=== PATIENT | female | born 1990 | race Caucasian/White ===

== ENCOUNTER 2016-10-18 18:31 | Emergency (ER) | payer MEDICAID ==
[2016-10-18 18:55] VITALS: BP 141/75
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
== END 2016-10-18 21:03 | disposition home or self-care (01) ==
LOC: JP.ED 18:31
DX: O9A.212 Injury, poisoning and certain other consequences of external causes complicating pregnancy, second trimester (principal); S30.1XXA Contusion of abdominal wall, initial encounter; Z3A.18 18 weeks gestation of pregnancy; Y93.55 Activity, bike riding; Z98.890 Other specified postprocedural states
CPT/HCPCS: 36415; 76815; 80053; 81001; 85025; 99284-25

== ENCOUNTER 2017-02-09 22:09 | Emergency (ER) | payer MEDICAID ==
[2017-02-09 22:32] VITALS: BP 127/73
--- NOTE | 2017-02-09 23:03 | EDM.PDOC ---
ED HPI GENERAL MEDICAL PROBLEM - General Chief Complaint: Genitourinary Problem Stated Complaint: HEMORHOID PAINFUL Time Seen by Provider: 02/09/17 22:50 Source of Information: Reports: Patient, Family, RN Notes Reviewed History Limitations: Reports: No Limitations - History of Present Illness INITIAL COMMENTS - FREE TEXT/NARRATIVE: 26-year-old female presents emergency department day complaint of rectal pain she is currently 36 weeks intrauterine admits to hard stool earlier today and she is now developed hemorrhoid that is not bleeding she is a 3 para 2 she did have hemorrhoids with prior pregnancies however small and did not cause any difficulties hemrroids Pain Score (Numeric/FACES): 10 - Related Data Allergies Allergy/AdvReac Type Severity Reaction Status Date / Time No Known Allergies Allergy Verified 01/05/17 21:06 Home Meds: Home Meds Ferrous Sulfate [Ferrous Sulfate] 325 mg PO BID 01/05/17 [History] Vits #93/Iron Fum/FA [ Formula Tablet] 1 each PO DAILY [History] Past Medical History HEENT History: Reports: Impaired Vision Gastrointestinal History: Reports: Hemorrhoids 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 Denies: Bloody Stool ED EXAM, GI/ABD - Physical Exam Exam: See Below Text/Narrative:: Examination of the rectum and presence of nursing staff there is a fairly large hemorrhoid proximally 1 cm x 2 cm superior aspect of the rectum it is exquisitely tender to the touch, no bleeding is appreciated Course - Vital Signs Last Recorded V/S: Last Vital Signs Temp 98.6 F 02/09/17 22:31 Pulse 88 02/09/17 22:31 Resp 20 02/09/17 22:31 BP 127/73 02/09/17 22:31 Pulse Ox 98 02/09/17 22:31 Departure - Departure Time of Disposition: 23:02 Disposition: Home, Self-Care 01 Condition: Good Clinical Impression: Hemorrhoids during Qualifiers: Trimester: third trimester Qualified Code(s): O22.43 - Hemorrhoids in , third trimester - Discharge Information Referrals: Jelly Iqbal CNM [Primary Care Provider] - Additional Instructions: Recommend symptomatic care, recommend soft stool, recommend sitz baths for comfort please keep your regular appointments with your OB provider - Assessment/Plan Plan: Assessment Acuity = acute Site and laterality = hemorrhoid in the third trimester Etiology = secondary to straining during stool Manifestations = pain Location of injury = Home Lab values = none Plan Symptomatic care [id number] products and recommend soft stools to avoid straining keep regular appointments with OB provider, sitz baths for comfort Patient was in agreement with the plan all questions were answered, they were instructed to return to the emergency department or call for worsening symptoms. This note was dictated using [employer] voice recognition software please call with any questions.
== END 2017-02-09 23:17 | disposition home or self-care (01) ==
LOC: JP.ED 22:09
DX: O22.43 Hemorrhoids in pregnancy, third trimester (principal); Z3A.36 36 weeks gestation of pregnancy
CPT/HCPCS: 99283

== ENCOUNTER 2017-03-13 05:45 | Inpatient (IN) | payer MEDICAID ==
[2017-03-13] MEDS ORDERED: Lactated Ringers 1,000 ML IV SCH (06:30)
[2017-03-13] MEDS ORDERED: Oxytocin 10 Units/1 ML SDV ONE (06:53)
[2017-03-13] MEDS ORDERED: cefOXitin 1 GM Vial ONE (06:54)
[2017-03-13] MEDS ORDERED: Sodium Chloride 0.9% 0 ML ONE (06:55)
[2017-03-13] MEDS ORDERED: cefOXitin 2 GM Vial ONE (07:33)
[2017-03-13] MEDS ORDERED: Naloxone 0.4 MG/ML SDV IVPUSH PRN (07:46)
[2017-03-13] MEDS ORDERED: Lactated Ringers 1,000 ML ONE (07:48)
[2017-03-13] MEDS ORDERED: Naloxone 0.4 MG/ML SDV IV PRN (07:55)
[2017-03-13] MEDS: HYDROmorphone/Normal Saline 15 MG/30 ML PCA IV PRN (07:56)
[2017-03-13] MEDS ORDERED: Midazolam 1 MG/ML 2 ML SDV ONE (07:58)
[2017-03-13] MEDS ORDERED: fentaNYL 100 MCG/2 ML SDV ONE (07:58)
[2017-03-13] MEDS ORDERED: Ondansetron 4 MG/2 ML SDV ONE (08:12)
[2017-03-13] MEDS ORDERED: Ondansetron 4 MG/2 ML SDV IVPUSH PRN (09:57)
[2017-03-13] MEDS: Dextrose 5%-Lactated Ringers 1,000 ML IV SCH ×2 (10:02→21:54)
[2017-03-13] MEDS ORDERED: Misoprostol 200 MCG Tab ONE (11:42)
[2017-03-13] MEDS ORDERED: Methylergonovine 0.2 MG/1 ML Amp ONE (11:43)
[2017-03-13] MEDS ORDERED: Carboprost Tromethamine 250 MCG/1 ML Amp ONE (11:43)
[2017-03-13] MEDS ORDERED: Methylergonovine 0.2 MG/1 ML Amp STA (11:45)
[2017-03-13] MEDS ORDERED: Coagulation Factor VIIa Recombinant (per MCG) 2 MG Vial IVPUSH STA (11:55)
[2017-03-13] MEDS: cefOXitin 2 GM in Sodium Chloride 0.9% 50 ML IV SCH ×2 (13:11→18:10)
[2017-03-14] MEDS: cefOXitin 2 GM in Sodium Chloride 0.9% 50 ML IV SCH ×2 (02:32→05:34)
[2017-03-14] MEDS: Dextrose 5%-Lactated Ringers 1,000 ML IV SCH (03:46)
[2017-03-14] MEDS ORDERED: Dextrose 5%-Lactated Ringers 1,000 ML IV SCH ×2 (08:00→17:46)
[2017-03-14] MEDS: HYDROmorphone/Normal Saline 15 MG/30 ML PCA IV PRN (20:10)
[2017-03-15] MEDS ORDERED: Sodium Chloride 0.9% 10 ML Syringe IV PRN (08:18)
[2017-03-15] MEDS ORDERED: Magnesium Hydroxide 400 MG/5 ML Susp 30 ML Cup PO ONE (09:00)
[2017-03-15] MEDS: Acetaminophen/HYDROcodone 325-5 MG Tab PO PRN ×4 (09:27→23:11)
--- NOTE | 2017-03-15 14:05 | PN ---
DATE OF SERVICE: 03/14/2017 The patient had a quite a bit of bleeding following yesterday, then received 2 units of packed RBCs. Hemoglobin at this point is 8.5 and appears clinically the bleeding has slowed down and urine output has picked up fairly well. Plan would be to continue the ADDICTION PSYCHIATRIST today. We will recheck the hemoglobin at 5:00 p.m. and 5:00 a.m. and go up to a regular diet. Naldo Ann MD /[id number]
[2017-03-15] MEDS: Docusate Sodium 100 MG Cap PO PRN (19:26)
[2017-03-16] MEDS: Acetaminophen/HYDROcodone 325-5 MG Tab PO PRN ×2 (03:16→11:21)
[2017-03-16] MEDS: Docusate Sodium 100 MG Cap PO PRN (09:25)
[2017-03-16 11:26] VITALS: BP 130/67
--- NOTE | 2017-03-16 14:09 | PN ---
DATE OF SERVICE: 03/15/2017 The patient has been afebrile with stable vital signs. She complains of some shortness of breath on walking extended lengths, likely related to her low hemoglobin. Hemoglobin was 7.1 this morning, down a little bit from yesterday. She is making a large amount of urine and certainly not acting hypovolemic, and at her age, at this point, will not transfuse her. We will recheck her hemoglobin tomorrow morning. I will switch her over to oral pain medications today, give her some bowel stimulation, and depending on the clinical status, she may be ready for home tomorrow. Naldo Ann MD /[id number] MTDD
--- NOTE | 2017-03-17 07:27 | DISCH ---
ADMISSION DIAGNOSES: 1. Term . 2. Attention-deficit hyperactivity disorder. DISCHARGE DIAGNOSES: 1. Planned section on 03/13/2017. 2. Post section hemorrhage requiring two units of packed red blood cells. HOSPITAL COURSE: Juanita Sandra is a 26-year-old female with planned . She had no operative complications. On the day of her , she started bleeding, and received two units of packed red blood cells. Hemoglobin is 8.5, and clinically, the bleeding had stopped. The urinary output had picked up. On postoperative day #1, she was started on oral pain medication, and the bleeding had pretty much stopped. On postoperative day #3, she was ready to be discharged to home. Her pain was controlled. Her activity was good. Vital signs were stable. Hemoglobin was 7.3. PHYSICAL EXAMINATION: GENERAL: Juanita Sandra is a 26-year-old female. VITAL SIGNS: Height is 5 feet 7 inches and weight is 219 pounds 9.6 ounces. Temperature was 98.6, pulse was 79, respirations were 18, and blood pressure was 128/74. HEENT: Negative. NECK: Supple. HEART: Regular rate and rhythm. LUNGS: Clear. ABDOMEN: Soft and minimally tender. incision looks good. Healing well. EXTREMITIES: Without peripheral edema or calf pain. DISPOSITION: Discharged to home. CONDITION: Stable and improving. FOLLOWUP APPOINTMENT: With Raquel Manuel PA-C, on 03/23/2017 at 1 p.m. She is to follow up at 12:30 for CMP and CBC. DISCHARGE MEDICATIONS: New prescriptions are: 1. [place] 5/325 mg one tablet every 4 hours p.r.n. pain, #30. 2. Colace 100 mg twice daily as needed, #100. 3. Milk of magnesia 30 mL two doses were sent with patient. She is to take one when she gets home, and repeat in a.m. if no bowel movement. 4. She is to continue with her vitamins one daily. DIET AFTER DISCHARGE: Regular diet as tolerated. Drink eight to ten glasses of water a day. ACTIVITY: As tolerated. Driving, do not drive for two weeks. Shower/bathing, may shower. Notify provider if any fever, drainage, nausea, or vomiting. Wound incision, keep the site clean and dry. No lifting greater than baby in car seat and wear abdominal binder. SPECIAL INSTRUCTIONS: Use incentive spirometer 10 times every hour while awake for one week.
--- NOTE | 2017-03-18 15:22 | OR ---
DATE OF PROCEDURE: 03/13/2017 PREOPERATIVE DIAGNOSIS: Term with history of previous section. POSTOPERATIVE DIAGNOSIS: Repeat section (03167). ANESTHESIA: Spinal. HRBP: Ary Hernnadez CNM INDICATIONS FOR PROCEDURE: This is a 26-year-old female presenting for an elective section, having had a previous . The plan is to proceed with a section. Potential risks including bleeding, infection, injury to baby and her mother were reviewed, and the patient wishes to proceed. DETAILS OF PROCEDURE: The patient was taken to the room. After spinal anesthetic was placed, positioned in a supine position with a roll underneath the right hip, Correa catheter was inserted and the abdomen, was prepped and draped. A previous Pfannenstiel incision was then used and the incision continued down through the skin and subcutaneous tissue and anterior rectus sheath. Subrectus sheath flaps were then raised superiorly and inferiorly, and the midline peritoneum then divided. The peritoneal reflection of the bladder and the uterus was then divided and a transverse lower uterine segment incision was made. A viable male was delivered through vertex presentation with the face being more or less directly anterior. The cord was clamped and cut, and routine care given off the field per Ms. Hernandez. The score at 1 and 5 minutes were both 9. Placenta was a little bit difficult to separate from the uterus, but eventually a good plane of separation was established, and the placenta and uterine membranes were delivered without difficulty. The patient was given intrauterine oxytocin and IV cefoxitin. Good uterine contractions were noted. The patient did have what appeared to be somewhat more bleeding in general than typical, but this at the conclusion of the procedure, good hemostasis was evident. The uterus was then closed with 2 layers of 2-0 Vicryl stitch and the repair of external bladder under the uterus. The midline peritoneum and anterior rectus sheaths were then sequentially both closed with #2 Vicryl stitch and the skin closed with 4-0 Vicryl subcuticular stitch. Dressing was applied. The patient was taken to the recovery room in satisfactory condition. There were no evident complications. Naldo Ann MD /[id number]
== END 2017-03-16 14:05 | disposition home or self-care (01) | DRG 765 ==
LOC: JP.SDS 05:45 → JP.MS 07:54
PROVIDERS: ADMIT Surgery; ATTEND Surgery
PROC: 10D00Z1 Extraction of Products of Conception, Low, Open Approach (ICD-10-PCS; principal; 2017-03-13)
PROC: 30233N1 Transfusion of Nonautologous Red Blood Cells into Peripheral Vein, Percutaneous Approach (ICD-10-PCS; 2017-03-13)
DX: O34.211 Maternal care for low transverse scar from previous cesarean delivery (principal); O72.1 Other immediate postpartum hemorrhage; Z3A.38 38 weeks gestation of pregnancy; Z37.0 Single live birth; N85.8 Other specified noninflammatory disorders of uterus; F98.8 Other specified behavioral and emotional disorders with onset usually occurring in childhood and adolescence; O99.343 Other mental disorders complicating pregnancy, third trimester
CPT/HCPCS: 36415; 36430; 59409; 80048; 80305; 85014; 85018; 85025; 85027; 86850; 86900; 86901; 86920; 86922; 88307; 94762; A9270-GY; J0694; J1170; J2210; J2250; J2405; J2590; J3010; J7030; J7042; J7050; J7120; J7189; P9016

== ENCOUNTER 2017-10-25 15:38 | Emergency (ER) | payer MEDICAID ==
[2017-10-25 16:08] VITALS: BP 115/72
[2017-10-25] MEDS ORDERED: Alum Hydrox/Mag Hydrox/Simeth 15 ML, Lidocaine 2% 15 ML PO ONE ×2 (16:32)
--- NOTE | 2017-10-25 16:36 | EDM.PDOC ---
ED HPI GENERAL MEDICAL PROBLEM - General Chief Complaint: Respiratory Problem Stated Complaint: CHEST PAIN Time Seen by Provider: 10/25/17 16:27 Source of Information: Reports: Patient, RN Notes Reviewed History Limitations: Reports: No Limitations - History of Present Illness INITIAL COMMENTS - FREE TEXT/NARRATIVE: 26-year-old female presents emergency department day complaint of epigastric pain, she states had this before he was told was pleurisy she states the pain started today it makes no difference with food she has tried Tums without any relief was diaphoretic with pain no fevers no shortness of breath no nausea vomiting Chest Pain Score (Numeric/FACES): 10 - Related Data Allergies Allergy/AdvReac Type Severity Reaction Status Date / Time No Known Allergies Allergy Verified 03/13/17 06:09 Home Meds: Home Meds Ferrous Sulfate 325 mg PO BID 01/05/17 [History] Vits #93/Iron Fum/FA [ Formula Tablet] 1 each PO DAILY [History] Acetaminophen/HYDROcodone [[place] 325-5 MG] 1 tab PO Q4H PRN #30 tablet 03/16/17 [Rx] Docusate Sodium [Colace] 100 mg PO BID PRN #100 cap 03/16/17 [Rx] Magnesium Hydroxide [Milk of Magnesia] 30 ml PO DAILY PRN #2 dose 03/16/17 [Rx] Past Medical History HEENT History: Reports: Impaired Vision, Other (See Below) Other HEENT History: wears glasses Gastrointestinal History: Reports: Hemorrhoids 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: Hematologic History: Reports: Iron Deficiency - Infectious Disease History Infectious Disease History: Reports: None - Past Surgical History HEENT Surgical History: Reports: Other (See Below) Other HEENT Surgeries/Procedures: wisdom teeth removed Female Surgical History: Reports: Section Social & Family History - Tobacco Use Smoking Status *Q: Never Smoker - Caffeine Use Caffeine Use: Reports: Soda - Recreational Drug Use Recreational Drug Use: No ED ROS GENERAL - Review of Systems Review Of Systems: See Below Constitutional: Reports: Diaphoresis HEENT: Reports: No Symptoms Respiratory: Reports: No Symptoms Cardiovascular: Reports: No Symptoms GI/Abdominal: Reports: Abdominal Pain (Epigastric region), Constipation, Diarrhea. Denies: Nausea, Vomiting : Reports: No Symptoms Musculoskeletal: Reports: No Symptoms Skin: Reports: No Symptoms Neurological: Reports: No Symptoms ED EXAM, GENERAL - Physical Exam Exam: See Below Free Text/Narrative:: General: Female, not in any distress, alert and oriented x3 HEENT: head is atraumatic normocephalic, eyes pupils equal round reactive to light, sclera clear no conjunctivitis appreciated. Ears tympanic membranes clear and flores landmarks and light reflex are present bilaterally canals are clear. Nose no septal deviation, nares are clear, no blood present. Mouth mucosa is moist and pink no erythema or exudate noted in soft palate, tongue is midline uvula is midline, dentition is intact. Neck: Supple no thyromegaly no tracheal deviation. Nodes: Cervical nodes subclavicular nodes nontender no palpable lymphadenopathy noted. Lungs: clear to auscultation bilaterally with symmetrical respirations, no adventitious noise appreciated. CV: Regular rate and rhythm S1 and S2 appreciated no murmurs rubs or gallops noted. Abdomen: Soft, tender to palpation in epigastric region, no palpable masses or organomegaly appreciated, no distention no guarding bowel sounds are present, . Neuro: Cranial nerves II through XII grossly intact Skin: Warm and dry, intact Extremities: No lower extremity edema appreciated, pedal pulse is +2. Course - Vital Signs Last Recorded V/S: Last Vital Signs Temp 96.3 F 10/25/17 16:08 Pulse 63 10/25/17 16:08 Resp 16 10/25/17 16:08 BP 115/72 10/25/17 16:08 Pulse Ox 100 10/25/17 16:08 - Orders/Labs/Meds Orders: Active Orders 24 hr Category Date Time Status Cardiac Monitoring [RC] .As Directed Care 10/25/17 16:33 Active EKG Documentation Completion [RC] ASDIRECTED Care 10/25/17 16:34 Active Chest 2V [CR] Stat Exams 10/25/17 16:34 Taken EKG 12 Lead [EK] Stat Ther 10/25/17 16:34 Ordered Labs: Laboratory Tests 10/25/17 10/25/17 Range/Units 16:57 16:57 WBC 8.9 (4.5-11.0) K/uL RBC 4.56 (3.30-5.50) M/uL Hgb 10.3 L D (12.0-15.0) g/dL Hct 33.1 L (36.0-48.0) % MCV 73 L (80-98) fL MCH 23 L (27-31) pg MCHC 31 L (32-36) % Plt Count 387 (150-400) K/uL Neut % (Auto) 79 H (36-66) % Lymph % (Auto) 13 L (24-44) % [place] % (Auto) 7 H (2-6) % Eos % (Auto) 1 L (2-4) % Baso % (Auto) 0 (0-1) % Sodium 141 (140-148) mmol/L Potassium 4.3 (3.6-5.2) mmol/L Chloride 106 (100-108) mmol/L Carbon Dioxide 26 (21-32) mmol/L Anion Gap 8.7 (5.0-14.0) mmol/L BUN 16 (7-18) mg/dL Creatinine 0.8 (0.6-1.0) mg/dL Est Cr Clr Drug Dosing 101.81 mL/min Estimated GFR (MDRD) > 60 (>60) Glucose 114 H (74-106) mg/dL Calcium 8.4 L (8.5-10.1) mg/dL Total Bilirubin 0.2 (0.2-1.0) mg/dL AST 13 L (15-37) U/L ALT 16 D (12-78) U/L Alkaline Phosphatase 71 (46-116) U/L Troponin I < 0.017 (0.000-0.056) ng/mL Total Protein 6.9 (6.4-8.2) g/dL Albumin 3.4 (3.4-5.0) g/dL Globulin 3.5 (2.3-3.5) g/dL Albumin/Globulin Ratio 1.0 L (1.2-2.2) Meds: Medications Discontinued Medications Generic Name Dose Route Start Last Admin Trade Name Freq PRN Reason Stop Dose Admin Al Hydroxide/Mg Hydroxide 15 0 ml 10/25/17 16:32 10/25/17 16:39 ml/ Lidocaine HCl 15 ml PO 10/25/17 16:33 15 ml ONETIME ONE Administration Departure - Departure Time of Disposition: 17:39 Disposition: Home, Self-Care 01 Condition: Good Clinical Impression: Gastroesophageal reflux disease Qualifiers: Esophagitis presence: esophagitis presence not specified Qualified Code(s): K21.9 - Gastro-esophageal reflux disease without esophagitis - Discharge Information Referrals: Jelly Iqbal CNM [Primary Care Provider] - Forms: ED Department Discharge Additional Instructions: Try Zantac 150 mg 2 times a day, follow-up with your primary care in 7-10 days for reevaluation, call or return to the emergency department with worsening of symptoms - My Orders Last 24 Hours: My Active Orders 10/25/17 16:33 Cardiac Monitoring [RC] .As Directed 10/25/17 16:34 EKG Documentation Completion [RC] ASDIRECTED Chest 2V [CR] Stat EKG 12 Lead [EK] Stat - Assessment/Plan Last 24 Hours: My Active Orders 10/25/17 16:33 Cardiac Monitoring [RC] .As Directed 10/25/17 16:34 EKG Documentation Completion [RC] ASDIRECTED Chest 2V [CR] Stat EKG 12 Lead [EK] Stat Plan: Assessment Acuity = acute Site and laterality = epigastric pain Etiology = suspicious for gastroesophageal reflux disease Manifestations = none Location of injury = Home Lab values = hemoglobin low at 10.4 consistent with microchromic anemia, CMP unremarkable, troponin negative, EKG demonstrates normal sinus rhythm chest x- ray I did review films myself I cannot appreciate any acute process, the official read from radiology is pending Plan She had good improvement with the GI cocktail became pain-free she is given a duo trial of Zantac [id number] 150 mg twice a day for the next couple weeks follow-up primary care in 7-10 days for reevaluation This note was dictated using [employer] voice recognition software please call with any questions on syntax or grammar.
--- NOTE | 2017-10-26 09:12 | CR ---
CHEST: 2 view CLINICAL HISTORY:Chest pain COMPARISON:None FINDINGS: Heart and pulmonary vascularity appear normal. Lung huston are clear. IMPRESSION: No acute cardiopulmonary process
== END 2017-10-25 17:50 | disposition home or self-care (01) ==
LOC: JP.ED 15:38
DX: K21.9 Gastro-esophageal reflux disease without esophagitis (principal); Z79.899 Other long term (current) drug therapy
CPT/HCPCS: 36415; 71046; 80053; 84484; 85025; 93005; 99285; A9270

== ENCOUNTER 2017-10-25 20:43 | Emergency (ER) | payer MEDICAID ==
[2017-10-25] MEDS ORDERED: Alum Hydrox/Mag Hydrox/Simeth 15 ML, Lidocaine 2% 15 ML PO ONE ×2 (21:12)
[2017-10-25] MEDS ORDERED: HYDROmorphone 1 MG/ML Syringe IM ONE (21:22)
--- NOTE | 2017-10-25 21:28 | EDM.PDOC ---
ED HPI GENERAL MEDICAL PROBLEM - General Chief Complaint: Gastrointestinal Problem Stated Complaint: STOMACH PAIN Time Seen by Provider: 10/25/17 21:15 Source of Information: Reports: Patient, Old Records History Limitations: Reports: No Limitations - History of Present Illness INITIAL COMMENTS - FREE TEXT/NARRATIVE: 26 yo female here for the 2nd time in about 6 hrs for increasing pain in the sternal area and epigastrium. She had a CBC that showed only mild anemia and a CMP earlier that was normal. Trop was normal as well. She had received a GI cocktail that she says only gave her very transient relief. Ranitidine was prescribed and this did not help her after 2 hrs and with worsening pain she came back. No fever. Pain is worse with deep breathing. Onset: Today Onset Date: 10/25/17 Duration: Hour(s):, Getting Worse Location: Reports: Chest (sternal), Abdomen (epigastric) Quality: Reports: Sharp Severity: Severe Improves with: Reports: None Worsens with: Reports: Other (? time) Context: Reports: Other (See HPI) Associated Symptoms: Reports: Chest Pain (sternal), Nausea/Vomiting (nausea without vomiting). 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: Hematologic History: Reports: Iron Deficiency - Infectious Disease History Infectious Disease History: Reports: None - Past Surgical History HEENT Surgical History: Reports: Other (See Below) Other HEENT Surgeries/Procedures: wisdom teeth removed Female Surgical History: Reports: Section Social & Family History - Tobacco Use Smoking Status *Q: Never Smoker - Caffeine Use Caffeine Use: Reports: Soda - Recreational Drug Use Recreational Drug Use: No ED ROS GENERAL - Review of Systems Review Of Systems: See Below Constitutional: Reports: No Symptoms HEENT: Reports: No Symptoms Respiratory: Reports: Pleuritic Chest Pain. Denies: Shortness of Breath, Wheezing, Cough, Sputum, Hemoptysis Cardiovascular: Reports: Chest Pain (sternal). Denies: Dyspnea on Exertion, Edema, Palpitations Endocrine: Reports: No Symptoms GI/Abdominal: Reports: Abdominal Pain (epigastrium), Nausea. Denies: Black Stool, Bloody Stool, Constipation, Diarrhea, Decreased Appetite, Difficulty Swallowing, Distension, Flatus, Hematemesis, Hematochezia, Melena, Vomiting : Denies: Discharge, Dysuria, Flank Pain, Frequency, Hematuria, Incontinence, Irregular Menses, Pain, Urgency, Urinary Retention Musculoskeletal: Reports: No Symptoms Skin: Reports: No Symptoms Neurological: Reports: No Symptoms Psychiatric: Reports: No Symptoms ED EXAM, GI/ABD - Physical Exam Exam: See Below Exam Limited By: No Limitations General Appearance: Alert, WD/WN, Mild Distress Eyes: Bilateral: Normal Appearance, EOMI Ears: Normal External Exam, Normal Canal, Hearing Grossly Normal, Normal TMs Nose: Normal Inspection, Normal Mucosa, No Blood Throat/Mouth: Normal Inspection, Normal Lips, Normal Oropharynx, Normal Voice, No Airway Compromise Head: Atraumatic, Normocephalic Neck: Normal Inspection, Supple, Non-Tender Respiratory/Chest: No Respiratory Distress, Lungs Clear, Normal Breath Sounds, No Accessory Muscle Use, Other (sternal tenderness). No: Chest Non-Tender Cardiovascular: Regular Rate, Rhythm GI/Abdominal Exam: Normal Bowel Sounds, Soft, No Distention, Tender (epigastrium , and to a lesser degree the RUQ). No: Distended, Guarding, Rigid, Rebound Back Exam: Normal Inspection. No: CVA Tenderness (R), CVA Tenderness (L) Extremities: Normal Inspection, Normal Range of Motion, Non-Tender, No Pedal Edema Neurological: Alert, Oriented, CN II-XII Intact, Normal Cognition, No Motor/ Sensory Deficits Psychiatric: Normal Affect, Normal Mood Skin Exam: Warm, Dry, Intact, Normal Color, No Rash Lymphatic: No Adenopathy Course - Vital Signs Text/Narrative:: Feeling much better, pain almost completely gone. Last Recorded V/S: Last Vital Signs Temp 35.4 C 10/26/17 00:11 Pulse 79 10/26/17 00:11 Resp 14 10/26/17 00:11 BP 125/75 10/26/17 00:11 Pulse Ox 99 07/09/18 00:11 - Orders/Labs/Meds Orders: Active Orders 24 hr Category Date Time Status Abdomen Ltd [US] Stat Exams 10/25/17 21:22 Taken Labs: Laboratory Tests 10/25/17 10/25/17 10/25/17 Range/Units 23:00 23:00 23:30 WBC 13.3 H (4.5-11.0) K/uL RBC 4.67 (3.30-5.50) M/uL Hgb 10.4 L (12.0-15.0) g/dL Hct 33.5 L (36.0-48.0) % MCV 72 L (80-98) fL MCH 22 L (27-31) pg MCHC 31 L (32-36) % Plt Count 411 H (150-400) K/uL Sodium 139 L (140-148) mmol/L Potassium 3.9 (3.6-5.2) mmol/L Chloride 105 (100-108) mmol/L Carbon Dioxide 24 (21-32) mmol/L Anion Gap 13.9 (5.0-14.0) mmol/L BUN 13 (7-18) mg/dL Creatinine 0.7 (0.6-1.0) mg/dL Est Cr Clr Drug Dosing 112.01 mL/min Estimated GFR (MDRD) > 60 (>60) Glucose 111 H (74-106) mg/dL Calcium 8.7 (8.5-10.1) mg/dL Total Bilirubin 0.3 (0.2-1.0) mg/dL AST 20 (15-37) U/L ALT 19 (12-78) U/L Alkaline Phosphatase 75 (46-116) U/L C-Reactive Protein 0.48 H (0.0-0.3) mg/dL Total Protein 7.4 (6.4-8.2) g/dL Albumin 3.7 (3.4-5.0) g/dL Globulin 3.7 H (2.3-3.5) g/dL Albumin/Globulin Ratio 1.0 L (1.2-2.2) Meds: Medications Discontinued Medications Generic Name Dose Route Start Last Admin Trade Name Freq PRN Reason Stop Dose Admin Al Hydroxide/Mg Hydroxide 15 0 ml 10/25/17 21:12 10/25/17 21:17 ml/ Lidocaine HCl 15 ml PO 10/25/17 21:13 30 ml ONETIME ONE Administration Hydromorphone HCl 1 mg 10/25/17 21:22 10/25/17 21:27 Dilaudid IM 10/25/17 21:23 1 mg ONETIME ONE Administration Ondansetron HCl 4 mg 10/25/17 22:52 10/25/17 23:00 Zofran Odt PO 10/25/17 22:53 4 mg ONETIME ONE Administration - Radiology Interpretation Free Text/Narrative:: Gallbladder US-gallbladder and common bile duct enlarged. Departure - Departure Time of Disposition: 00:15 Disposition: Home, Self-Care 01 Condition: Good Clinical Impression: Biliary colic - Discharge Information Referrals: PCP,None [Primary Care Provider] - Forms: ED Department Discharge - My Orders Last 24 Hours: My Active Orders 10/25/17 21:22 Abdomen Ltd [US] Stat - Assessment/Plan Last 24 Hours: My Active Orders 10/25/17 21:22 Abdomen Ltd [US] Stat
[2017-10-25] MEDS ORDERED: Ondansetron 4 MG Tab.DIS PO ONE (22:52)
[2017-10-26 00:12] VITALS: BP 125/75
== END 2017-10-26 00:26 | disposition home or self-care (01) ==
LOC: JP.ED 20:43
DX: K80.50 Calculus of bile duct without cholangitis or cholecystitis without obstruction (principal)
CPT/HCPCS: 36415; 76705; 80053; 85027; 86140; 96372; 99284; A9270; J1170

== ENCOUNTER 2017-10-27 16:03 | Inpatient (IN) | payer MEDICAID ==
[2017-10-27] MEDS ORDERED: HYDROmorphone 1 MG/ML Syringe IM ONE (17:27)
--- NOTE | 2017-10-27 17:33 | EDM.PDOC ---
ED HPI GENERAL MEDICAL PROBLEM - General Chief Complaint: Abdominal Pain Stated Complaint: ABD PAIN Time Seen by Provider: 10/27/17 17:20 Source of Information: Reports: Patient, Family History Limitations: Reports: No Limitations - History of Present Illness INITIAL COMMENTS - FREE TEXT/NARRATIVE: 26-year-old female with known biliary colic, was scheduled to see surgery this week but couldn't get an appointment. She was only able to eat a small amount of toast today and is having intense right upper quadrant pain, tearful and uncomfortable. Nausea but no vomiting. 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 Denies: Fever, Chills HEENT: Reports: No Symptoms Respiratory: Denies: Shortness of Breath Cardiovascular: Denies: Chest Pain GI/Abdominal: Reports: Abdominal Pain, Decreased Appetite, Nausea. Denies: Vomiting Skin: Reports: No Symptoms Neurological: Reports: No Symptoms Psychiatric: Reports: Anxiety ED EXAM, GI/ABD - Physical Exam Exam: See Below Exam Limited By: No Limitations General Appearance: Alert, Moderate Distress Eyes: Bilateral: Normal Appearance (No jaundice) Respiratory/Chest: No Respiratory Distress, Lungs Clear Cardiovascular: Regular Rate, Rhythm. No: Tachycardia GI/Abdominal Exam: Tender (Very tender to palpation in the upper abdomen, mostly epigastric and right upper quadrant. No organomegaly appreciated.) Psychiatric: Anxious Skin Exam: Warm, Dry Course - Vital Signs Last Recorded V/S: Last Vital Signs Temp 96.3 F 10/28/17 07:32 Pulse 51 L 10/28/17 07:32 Resp 16 10/28/17 07:32 BP 112/69 10/28/17 07:32 Pulse Ox 97 10/28/17 07:52 - Orders/Labs/Meds Orders: Active Orders 24 hr Category Date Time Status Sodium Chloride 0.9% [Normal Saline] 1,000 ml Med 10/27/17 17:45 Active IV ASDIRECTED Medication Orders Ropivacaine 48 ml/Dexamethasone 8 mg/Epinephrine HCl 0.4 mg/ Sodium Chloride 29.6 ml 0 ml NERVRT ASDIRECTED BOB Hydromorphone HCl (Dilaudid Special Client Bus Driver 15 Mg In Ns 30 Ml) 0 mg IV ASDIRECTED PRN; Protocol PRN Reason: Pain Last Admin: 10/27/17 22:10 Dose: 15 mg Sodium Chloride (Normal Saline) 1,000 mls @ 1,000 mls/hr IV ASDIRECTED BOB Last Admin: 10/27/17 17:52 Dose: 1,000 mls/hr Lactated Ringer's (Ringers, Lactated) 1,000 mls @ 100 mls/hr IV ASDIRECTED BOB Piperacillin/Tazobactam/ (Dextrose 3.375 gm/ Premix) 50 mls @ 100 mls/hr IV Q6H [facility] Last Admin: 10/28/17 09:52 Dose: 100 mls/hr Ketamine HCl (Ketalar) 30 mg IV BOLUS [facility] Lorazepam (Ativan) 1 mg IV Q6H PRN PRN Reason: Nausea/Vomiting Melatonin (Melatonin) 6 mg PO BEDTIME PRN PRN Reason: Insomnia Last Admin: 10/27/17 22:06 Dose: 6 mg Naloxone HCl (Narcan) 0.4 mg IVPUSH Q2M PRN PRN Reason: Respiratory Distress Ondansetron HCl (Zofran Odt) 4 mg PO Q6H PRN PRN Reason: Nausea able to take PO Ondansetron HCl (Zofran) 4 mg IV Q4H PRN PRN Reason: Nausea/Vomiting Last Admin: 10/28/17 10:15 Dose: 4 mg Admin: 10/27/17 21:46 Dose: 4 mg Pantoprazole Sodium (Protonix Iv) 40 mg IVPUSH BEDTIME BOB Last Admin: 10/27/17 21:50 Dose: 40 mg Labs: Laboratory Tests 10/27/17 10/27/17 10/27/17 Range/Units 17:34 17:34 17:34 WBC 12.0 H (4.5-11.0) K/uL RBC 4.89 (3.30-5.50) M/uL Hgb 11.1 L (12.0-15.0) g/dL Hct 35.5 L (36.0-48.0) % MCV 73 L (80-98) fL MCH 23 L (27-31) pg MCHC 31 L (32-36) % Plt Count 450 H (150-400) K/uL Neut % (Auto) 86 H (36-66) % Lymph % (Auto) 10 L (24-44) % [place] % (Auto) 4 (2-6) % Eos % (Auto) 0 L (2-4) % Baso % (Auto) 0 (0-1) % Sodium 138 L (140-148) mmol/L Potassium 3.6 (3.6-5.2) mmol/L Chloride 104 (100-108) mmol/L Carbon Dioxide 25 (21-32) mmol/L Anion Gap 12.6 (5.0-14.0) mmol/L BUN 19 H (7-18) mg/dL Creatinine 0.8 (0.6-1.0) mg/dL Est Cr Clr Drug Dosing 101.81 mL/min Estimated GFR (MDRD) > 60 (>60) Glucose 104 (74-106) mg/dL Calcium 8.9 (8.5-10.1) mg/dL Total Bilirubin 0.6 D (0.2-1.0) mg/dL AST 30 (15-37) U/L ALT 36 D (12-78) U/L Alkaline Phosphatase 87 (46-116) U/L Total Protein 8.1 (6.4-8.2) g/dL Albumin 4.1 (3.4-5.0) g/dL Globulin 4.0 H (2.3-3.5) g/dL Albumin/Globulin Ratio 1.0 L (1.2-2.2) Amylase 62 (25-115) U/L Lipase 154 (73-393) U/L Meds: Medications Generic Name Dose Route Start Last Admin Trade Name Yvan PRN Reason Stop Dose Admin Ropivacaine 48 ml/ 0 ml 10/28/17 09:00 Dexamethasone 8 mg/ NERVRT Epinephrine HCl 0.4 mg/ Sodium ASDIRECTED BOB Chloride 29.6 ml Hydromorphone HCl 0 mg 10/27/17 20:25 10/27/17 22:10 Dilaudid Special Client Bus Driver 15 Mg In Ns 30 Ml IV 15 mg ASDIRECTED PRN Administration Pain Protocol Sodium Chloride 1,000 mls @ 1,000 mls/hr 10/27/17 17:45 10/27/17 17:52 Normal Saline IV 1,000 mls/hr ASDIRECTED BOB Administration Lactated Ringer's 1,000 mls @ 100 mls/hr 10/28/17 07:53 Ringers, Lactated IV ASDIRECTED BOB Piperacillin/Tazobactam/ 50 mls @ 100 mls/hr 10/28/17 10:00 10/28/17 09:52 Dextrose 3.375 gm/ Premix IV 100 mls/hr Q6H BOB Administration Ketamine HCl 30 mg 10/28/17 08:00 Ketalar IV BOLUS BOB Lorazepam 1 mg 10/27/17 20:25 Ativan IV Q6H PRN Nausea/Vomiting Melatonin 6 mg 10/27/17 20:25 10/27/17 22:06 Melatonin PO 6 mg BEDTIME PRN Administration Insomnia Naloxone HCl 0.4 mg 10/27/17 20:25 Narcan IVPUSH Q2M PRN Respiratory Distress Ondansetron HCl 4 mg 10/27/17 20:25 Zofran Odt PO Q6H PRN Nausea able to take PO Ondansetron HCl 4 mg 10/27/17 20:25 10/28/17 10:15 Zofran IV 4 mg Q4H PRN Administration Nausea/Vomiting Pantoprazole Sodium 40 mg 10/27/17 21:00 10/27/17 21:50 Protonix Iv IVPUSH 40 mg BEDTIME BOB Administration Discontinued Medications Generic Name Dose Route Start Last Admin Trade Name Yvan PRN Reason Stop Dose Admin Dexamethasone Confirm 10/28/17 09:08 Dexamethasone Administered 10/28/17 09:09 Dose 4 mg .ROUTE .STK-MED ONE Fentanyl Confirm 10/28/17 09:08 Sublimaze Administered 10/28/17 09:09 Dose 250 mcg .ROUTE .STK-MED ONE Glycopyrrolate Confirm 10/28/17 09:08 Robinul Administered 10/28/17 09:09 Dose 1 mg .ROUTE .STK-MED ONE Hydromorphone HCl 1 mg 10/27/17 17:27 10/27/17 17:31 Dilaudid IM 10/27/17 17:28 1 mg ONETIME ONE Administration Lactated Ringer's 1,000 mls @ 125 mls/hr 10/27/17 20:25 10/28/17 07:08 Ringers, Lactated IV 125 mls/hr ASDIRECTED BOB Administration Piperacillin Sod/Tazobactam 50 mls @ 100 mls/hr 10/27/17 21:00 10/28/17 03:31 Sod 3.375 gm/ Sodium Chloride IV 100 mls/hr Q6H BOB Administration Neostigmine Methylsulfate Confirm 10/28/17 09:08 Neostigmine Administered 10/28/17 09:09 Dose 5 mg .ROUTE .STK-MED ONE Ondansetron HCl Confirm 10/28/17 09:08 Zofran Administered 10/28/17 09:09 Dose 4 mg .ROUTE .STK-MED ONE Propofol Confirm 10/28/17 09:08 Diprivan 20 Ml Administered 10/28/17 09:09 Dose 200 mg .ROUTE .STK-MED ONE Rocuronium [place] Confirm 10/28/17 09:08 Zemuron Administered 10/28/17 09:09 Dose 50 mg .ROUTE .STK-MED ONE Succinylcholine Chloride Confirm 10/28/17 09:08 Quelicin Administered 10/28/17 09:09 Dose 200 mg .ROUTE .STK-MED ONE - Re-Assessments/Exams Free Text/Narrative Re-Assessment/Exam: 10/27/17 18:57 CBC was repeated, white count is still elevated but slightly less than 2 days ago. Amylase and lipase are negative, LFTs are normal. Discussed the case with Dr. Ann, he asked for the hospitalist service to admit the patient for hydration, pain control and IV antibiotics and a cholecystectomy will be planned for tomorrow. Departure - Departure Time of Disposition: 20:38 Disposition: Admitted As Inpatient 64 Condition: Fair Clinical Impression: Cholecystitis - Discharge Information - My Orders Last 24 Hours: My Active Orders 10/27/17 17:45 Sodium Chloride 0.9% [Normal Saline] 1,000 ml IV ASDIRECTED - Assessment/Plan Last 24 Hours: My Active Orders 10/27/17 17:45 Sodium Chloride 0.9% [Normal Saline] 1,000 ml IV ASDIRECTED
[2017-10-27] MEDS ORDERED: Sodium Chloride 0.9% 1,000 ML IV SCH (17:45)
--- NOTE | 2017-10-27 19:59 | PCM.HP ---
H&P History of Present Illness - General Date of Service: 10/27/17 Admit Problem/Dx: Admission Diagnosis/Problem Admission Diagnosis/Problem Cholecystitis Source of Information: Patient History Limitations: Reports: No Limitations - History of Present Illness Initial Comments - Free Text/Narative: 26-year-old female with known biliary colic, was scheduled to see surgery this week but couldn't get an appointment. She was only able to eat a small amount of toast today and is having intense right upper quadrant pain, tearful and uncomfortable. Nausea but no vomiting. Onset: Gradual ( over the past 3 days ) Location: Reports: Abdomen (Right upper quadrant) Quality: Reports: Sharp, Stabbing Severity: Moderate Improves with: Reports: None CBC was repeated, white count is still elevated but slightly less than 2 days ago. Amylase and lipase are negative, LFTs are normal. Discussed the case with Dr. Ann, he asked for the hospitalist service to admit the patient for hydration, pain control and IV antibiotics and a cholecystectomy will be planned for tomorrow. Onset of Symptoms: Reports: Gradual Symptom Onset Date: 10/25/17 Duration of Symptoms: Reports: Constant, Getting Worse Location: Reports: Abdomen Quality: Reports: Sharp, Stabbing Severity: Severe Improves with: Reports: None Worsens with: Reports: Eating Associated Symptoms: Reports: Fever/Chills, Loss of Appetite, Nausea/Vomiting Abdominal Pain Score (Numeric/FACES): 0 - Related Data Allergies/Adverse Reactions: Allergies Allergy/AdvReac Type Severity Reaction Status Date / Time No Known Allergies Allergy Verified 10/25/17 20:57 Home Medications: Home Meds Ranitidine HCl [Zantac] 150 mg PO BID 10/25/17 [History] Past Medical History HEENT History: Reports: Impaired Vision, Other (See Below) Other HEENT History: wears glasses Gastrointestinal History: Reports: Cholelithiasis, GERD, 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: Hematologic History: Reports: Iron Deficiency - Infectious Disease History Infectious Disease History: Reports: None - Past Surgical History HEENT Surgical History: Reports: Other (See Below) Other HEENT Surgeries/Procedures: wisdom teeth removed Female Surgical History: Reports: Section Social & Family History - Tobacco Use Smoking Status *Q: Never Smoker - Caffeine Use Caffeine Use: Reports: None - Recreational Drug Use Recreational Drug Use: No - Living Situation & Occupation Living situation: Reports: Single, with Significant Other Occupation: Unemployed (lives with SO, two sons ages 4 years and 8 months in [place], [place].) H&P Review of Systems - Review of Systems: Review Of Systems: See Below General: Reports: Fever, Malaise, Fatigue, Decreased Appetite, Weight Loss HEENT: Reports: Glasses Pulmonary: Reports: No Symptoms Cardiovascular: Reports: No Symptoms Gastrointestinal: Reports: Abdominal Pain, Decreased Appetite, Nausea, Vomiting Genitourinary: Reports: No Symptoms, Other (last menses 2 weeks ago, does not use control) Musculoskeletal: Reports: No Symptoms Skin: Reports: No Symptoms Psychiatric: Reports: No Symptoms Neurological: Reports: No Symptoms Hematologic/Lymphatic: Reports: No Symptoms Immunologic: Reports: No Symptoms Exam - Exam Exam: See Below - Vital Signs Vital Signs: Last Vital Signs Temp 36.0 C 10/27/17 19:25 Pulse 63 10/27/17 19:25 Resp 20 10/27/17 19:25 BP 104/59 L 10/27/17 19:25 Pulse Ox 100 10/27/17 19:25 Weight: 89.811 kg - Exam General: Alert, Oriented HEENT: PERRLA, Hearing Intact, Mucosa Moist & [place], Nares Patent, Normal Nasal Septum, Posterior Pharynx Clear, Conjunctiva Clear, EOMI, EACs Clear, TMs Clear Neck: Supple Lungs: Clear to Auscultation, Normal Respiratory Effort Cardiovascular: Regular Rate, Regular Rhythm, Normal S1, Normal S2 GI/Abdominal Exam: Normal Bowel Sounds, Tender (generalized more pronounce right upper quadrant abdominal pain), Other (Female) Exam: Deferred Rectal (Female) Exam: Deferred Back Exam: Normal Inspection, Full Range of Motion, NT Extremities: Normal Inspection, Normal Range of Motion, Non-Tender, No Pedal Edema, Normal Capillary Refill Peripheral Pulses: 2+: Radial (L), Radial (R) Skin: Warm, Dry, Intact Neurological: Cranial Nerves Intact, Reflexes Equal Bilateral Neuro Extensive - Mental Status: Alert, Oriented x3, Normal Mood/Affect, Normal Cognition Neuro Extensive - Motor, Sensory, Reflexes: CN II-XII Intact, Normal Reflexes Psychiatric: Alert, Normal Affect, Normal Mood - Patient Data Lab Results Last 24 hrs: Laboratory Results - last 24 hr 07/02/0410/27/17 10/27/17 Range/Units 17:34 17:34 17:34 WBC 12.0 H (4.5-11.0) K/uL RBC 4.89 (3.30-5.50) M/uL Hgb 11.1 L (12.0-15.0) g/dL Hct 35.5 L (36.0-48.0) % MCV 73 L (80-98) fL MCH 23 L (27-31) pg MCHC 31 L (32-36) % Plt Count 450 H (150-400) K/uL Neut % (Auto) 86 H (36-66) % Lymph % (Auto) 10 L (24-44) % [place] % (Auto) 4 (2-6) % Eos % (Auto) 0 L (2-4) % Baso % (Auto) 0 (0-1) % Sodium 138 L (140-148) mmol/L Potassium 3.6 (3.6-5.2) mmol/L Chloride 104 (100-108) mmol/L Carbon Dioxide 25 (21-32) mmol/L Anion Gap 12.6 (5.0-14.0) mmol/L BUN 19 H (7-18) mg/dL Creatinine 0.8 (0.6-1.0) mg/dL Est Cr Clr Drug Dosing 101.81 mL/min Estimated GFR (MDRD) > 60 (>60) Glucose 104 (74-106) mg/dL Calcium 8.9 (8.5-10.1) mg/dL Total Bilirubin 0.6 D (0.2-1.0) mg/dL AST 30 (15-37) U/L ALT 36 D (12-78) U/L Alkaline Phosphatase 87 (46-116) U/L Total Protein 8.1 (6.4-8.2) g/dL Albumin 4.1 (3.4-5.0) g/dL Globulin 4.0 H (2.3-3.5) g/dL Albumin/Globulin Ratio 1.0 L (1.2-2.2) Amylase 62 (25-115) U/L Lipase 154 (73-393) U/L Result Diagrams: 10/27/17 17:34 10/27/17 17:34 - Problem List (1) Cholecystitis SNOMED Code(s): 58443553 ICD Code: K81.9 - CHOLECYSTITIS, UNSPECIFIED Status: Acute Priority: High Current Visit: Yes Problem List Initiated/Reviewed/Updated: Yes Orders Last 24hrs: Active Orders 24 hr Category Date Time Status Patient Status Manage Transfer [TRANSFER] Routine ADT 10/27/17 19:45 Ordered Sodium Chloride 0.9% [Normal Saline] 1,000 ml Med 10/27/17 17:45 Active IV ASDIRECTED Resuscitation Status Routine Resus Stat 10/27/17 19:46 Ordered Medication Orders Sodium Chloride (Normal Saline) 1,000 mls @ 1,000 mls/hr IV ASDIRECTED BOB Last Admin: 10/27/17 17:52 Dose: 1,000 mls/hr Assessment/Plan Comment:: ASSESSMENT / PLAN 26-year-old female with known biliary colic, was scheduled to see surgery this week but couldn't get an appointment. She was only able to eat a small amount of toast today and is having intense right upper quadrant pain, tearful and uncomfortable. Nausea but no vomiting. Onset: Gradual ( over the past 3 days ) Location: Reports: Abdomen (Right upper quadrant) Quality: Reports: Sharp, Stabbing Severity: Moderate Improves with: Reports: None CBC was repeated, white count is still elevated but slightly less than 2 days ago. Amylase and lipase are negative, LFTs are normal. Discussed the case with Dr. Ann, he asked for the hospitalist service to admit the patient for hydration, pain control and IV antibiotics and a cholecystectomy will be planned for tomorrow. Plan Cholecystitis -Admit to [address] [place] [address] for further monitoring -IV Fluids for rehydration LR at 125 mL per hour -IV Zosyn 3.375mg every 6 hours -DELIVERER OUTSIDE Dilaudid for pain control -Advise to notify nurses of any chest pain or other symptoms -And a.m. labs: CBC, BMP -urine hcg pending Maintenance issues -Orders home meds: on hold -Nutrition: full liquid diet tonight, then NPO after midnight -Correa catheter not indicated at this time -DVT: SCD -PPI: IV Protonix 40mg daily -consult Spiritual CODE STATUS: FULL CODE Admission status: Admit to [address] [place] [address] Admission justification. This patient will be admitted for inpatient services and is medically appropriate meeting medical necessity for inpatient admission as outlined in my documentation. I reasonably expect the patient will require inpatient services that span. Time over 2 midnights. I reasonably expect this patient to be discharged or transferred within 96 hours after admission to the critical access hospital. Disposition; home Primary care provider: Jelly Iqbal Hospitalist: Dr. Leroy Surgery Service: Dr.D. Ann
[2017-10-27] MEDS ORDERED: Melatonin 3 MG Tab PO PRN (20:25)
[2017-10-27] MEDS ORDERED: HYDROmorphone/Normal Saline 15 MG/30 ML PCA IV PRN (20:25)
[2017-10-27] MEDS ORDERED: Ondansetron 4 MG Tab.DIS PO PRN (20:25)
[2017-10-27] MEDS ORDERED: LORazepam 2 MG/ML SDV IV PRN (20:25)
[2017-10-27] MEDS ORDERED: Naloxone 0.4 MG/ML SDV IVPUSH PRN (20:25)
[2017-10-27] MEDS: Lactated Ringers 1,000 ML IV SCH (21:33)
[2017-10-27] MEDS: Ondansetron 4 MG/2 ML SDV IV PRN (21:46)
[2017-10-27] MEDS: Pantoprazole 40 MG Vial IVPUSH SCH (21:50)
[2017-10-27] MEDS: Piperacillin/Tazobactam 3.375 GM in Sodium Chloride 0.9% 50 ML IV SCH (22:05)
[2017-10-28] MEDS: Piperacillin/Tazobactam 3.375 GM in Sodium Chloride 0.9% 50 ML IV SCH (03:31)
[2017-10-28] MEDS: Lactated Ringers 1,000 ML IV SCH (07:08)
[2017-10-28] MEDS ORDERED: Lactated Ringers 1,000 ML IV SCH (07:53)
[2017-10-28] MEDS ORDERED: Ketamine 500 MG/5 ML MDV IV SCH (08:00)
[2017-10-28] MEDS ORDERED: Non-Formulary Medication 1 Each SCH (08:00)
[2017-10-28] MEDS ORDERED: Ropivacaine 48 ML, Dexamethasone 8 MG, EPINEPHrine 0.4 MG, Sodium Chloride 0.9% 29.6 ML NERVRT SCH ×4 (09:00)
[2017-10-28] MEDS ORDERED: Rocuronium 50 MG/5 ML Vial ONE (09:08)
[2017-10-28] MEDS ORDERED: Succinylcholine 200 MG/10 ML MDV ONE (09:08)
[2017-10-28] MEDS ORDERED: fentaNYL 250 MCG/5 ML SDV ONE (09:08)
[2017-10-28] MEDS ORDERED: Dexamethasone 4 MG/ML SDV ONE (09:08)
[2017-10-28] MEDS ORDERED: Ondansetron 4 MG/2 ML SDV ONE (09:08)
[2017-10-28] MEDS ORDERED: Propofol 200 MG/20 ML SDV ONE (09:08)
[2017-10-28] MEDS ORDERED: Neostigmine Methylsulfate 1 MG/ML 5 ML Syringe ONE (09:08)
[2017-10-28] MEDS ORDERED: Glycopyrrolate 0.2 MG/ML 5 ML MDV ONE (09:08)
--- NOTE | 2017-10-28 09:47 | PN ---
DATE OF SERVICE: 10/28/2017 SUBJECTIVE: Juanita presented to the emergency room with abdominal pain. After an abdominal pain workup was obtained, she was diagnosed with biliary colic and cholecystitis. There was a request for a Surgical consult. Juanita currently is having pain on the pain scale 1-10 at 2/10 to 3/10. She is using a BREAD WRAPPER and n.p.o. REVIEW OF SYSTEMS: Remainder of review of systems negative for any pertinent positives and negatives. OBJECTIVE: GENERAL: Juanita Sandra is a pleasant 26-year-old female. VITAL SIGNS: TPR 96.3, 51, 16, blood pressure 112/69. HEENT: Negative. NECK: Supple. HEART: Regular rate and rhythm. LUNGS: Clear. ABDOMEN: Tenderness in the right upper quadrant. EXTREMITIES: Without peripheral edema. NEURO: Intact. ASSESSMENT: Acute cholecystitis, biliary colic. PLAN: 1. Schedule, have consent signed for a laparoscopic possible open cholecystectomy, general anesthesia; case to follow 10/28/2017. General anesthesia. Naldo Ann MD. 2. Remain n.p.o. 3. TAP block, ketamine bolus. 4. Decrease IV to 100 mL per hour. 5. Incentive spirometer, use 10 times every hour while awake. 6. We will evaluate p.r.n. Orders to be written postoperatively. Raquel Manuel PA-C /[id number]
[2017-10-28] MEDS: Piperacillin/Tazobactam/Dext 3.375 GM in Premix Bag 1 BAG IV SCH ×4 (09:52→21:05)
[2017-10-28] MEDS: Ondansetron 4 MG/2 ML SDV IV PRN ×3 (10:15→18:00)
[2017-10-28] MEDS ORDERED: Bupivacaine 0.5%/EPINEPHrine 1:200,000 50 ML MDV ONE (12:46)
[2017-10-28] MEDS ORDERED: Melatonin 3 MG Tab PO PRN (17:28)
[2017-10-28] MEDS ORDERED: LORazepam 1 MG Tab PO PRN (17:28)
[2017-10-28] MEDS: Dextrose 5%-Lactated Ringers 1,000 ML IV SCH (17:55)
[2017-10-28] MEDS: Pantoprazole 40 MG Vial IVPUSH SCH (21:05)
[2017-10-28] MEDS: Acetaminophen/HYDROcodone 325-5 MG Tab PO PRN ×2 (21:58→22:42)
[2017-10-29] MEDS: Dextrose 5%-Lactated Ringers 1,000 ML IV SCH (03:59)
[2017-10-29] MEDS: Acetaminophen/HYDROcodone 325-5 MG Tab PO PRN ×3 (04:11→12:40)
[2017-10-29] MEDS: Piperacillin/Tazobactam/Dext 3.375 GM in Premix Bag 1 BAG IV SCH ×2 (04:11→10:08)
--- NOTE | 2017-10-29 08:52 | DISCH ---
ADMISSION DIAGNOSES: 1. Acute cholecystitis. 2. Gastroesophageal reflux disease. 3. Attention deficit hyperactivity disorder. DISCHARGE DIAGNOSES: Laparoscopic cholecystectomy for chronic cholecystitis and cholelithiasis. Date of surgery, 10/28/2017. Surgeon, Naldo Ann MD. HISTORY: Juanita Sandra is a 26-year-old female who presented to the emergency department at [facility] with abdominal pain. After preoperative evaluation and discussion of possible risks and possible complications, she wished to proceed with surgical procedure. HOSPITAL COURSE: Juanita had her surgery on 10/28/2017. She had no operative complications. On postoperative day #1, her pain was managed. Vital signs were good. Oral intake was adequate and activity was good. She was able to be discharged to home. PHYSICAL EXAMINATION: GENERAL: Juanita is a 26-year-old female. VITAL SIGNS: Height is 5 feet 7 inches. Weight is 214 pounds. TPR is 97.7, 56, 13, and blood pressure 121/70. HEENT: Negative. NECK: Supple. HEART: Regular rate and rhythm. LUNGS: Clear. ABDOMEN: LAUREN drain is draining a light pink serosanguineous drainage. It will be removed prior to discharge. Sutures are intact. Abdominal binder has been on. EXTREMITIES: Without peripheral edema. DISPOSITION: Discharged to home. CONDITION: Stable and improving. FOLLOWUP: Followup appointment with Raquel Manuel PA-C, on 11/05/2017 at 9 a.m. DISCHARGE MEDICATIONS: Home medication; Dana 5/325 mg 1 to 2 q.4 hours p.r.n. pain, #40. DISCHARGE DIET: Usual diet as tolerated. Drink 8 to 10 glasses of water a day. ACTIVITY: No lifting greater than 10 pounds for 2 weeks. Activity, walk at least 6 times inside your home. Driving, do not drive while on pain medication. Shower/bathing, may shower. DISCHARGE INSTRUCTIONS: Notify provider if any fever, increased pain, nausea, or vomiting. Keep site clean and dry. Wear abdominal binder for 2 weeks and then as tolerated. Use incentive spirometer 10 times every hour while awake for one week.
[2017-10-29 11:13] VITALS: BP 122/68
[2017-10-29] MEDS: Ondansetron 4 MG/2 ML SDV IV PRN (13:21)
--- NOTE | 2017-11-01 12:41 | OR ---
DATE OF PROCEDURE: 10/28/2017 PREOPERATIVE DIAGNOSES: Chronic cholecystitis and cholelithiasis. POSTOPERATIVE DIAGNOSES: Chronic cholecystitis and cholelithiasis. OPERATIVE PROCEDURE: Laparoscopic cholecystectomy (64957). ANESTHESIA: General. INDICATION FOR PROCEDURE: The patient was admitted overnight with a picture of sustained biliary colic and cholelithiasis with the imaging suggestive of some tenderness and gallbladder wall thickening. The plan is to proceed with a laparoscopic or if necessary open cholecystectomy. Potential risks of the procedure including bleeding, infection, injury to underlying viscera including the common bile duct, and possibility of stones migrating into the common bile duct requiring additional procedures for correction were reviewed, and the patient wishes to proceed. DETAILS OF PROCEDURE: The patient was taken to the operating room and placed in a supine position. After general endotracheal anesthesia was induced, she was converted to a lithotomy position, and the abdomen was prepped and draped. A transverse epigastric incision was made and carried down through the skin and subcutaneous tissue and the peritoneal cavity entered under direct vision with an Optiview trocar, inflated to 15 mmHg pressure with CO2. Laparoscope was reinserted. No underlying trocar insertion site injuries were seen. Following this, a 12 mm subumbilical trocar was placed along with a single 5-mm right abdominal trocar. The gallbladder was noted to be quite distended and somewhat edematous. The gallbladder was retracted anteriorly and laterally. Some omental adhesions were taken down with Harmonic scalpel, after which the dissection began on the gallbladder neck and continued around the gallbladder neck and cystic duct junction. Once that area as well as the adjacent cystic artery were well identified, both structures were clipped 3 times proximally and once distally and divided. The gallbladder was then dissected off the gallbladder bed using a Harmonic scalpel and delivered through the epigastric trocar site. The patient had a good hemostasis confirmed at this point and it was felt not necessary that a drain be placed. The trocars were then sequentially removed, and the fascia at the 12 mm site was closed with 0 Vicryl stitch and the skin with 4-0 Vicryl skin stitch. Dressing was applied. The patient was taken to the recovery room in satisfactory condition. Naldo Ann MD /[id number]
== END 2017-10-29 14:28 | disposition home or self-care (01) | DRG 419 ==
LOC: JP.ED 16:03 → JP.2SS 19:45
PROVIDERS: ADMIT Hospitalist; ATTEND Surgery
PROC: 0FT44ZZ Resection of Gallbladder, Percutaneous Endoscopic Approach (ICD-10-PCS; principal; 2017-10-28)
DX: K80.10 Calculus of gallbladder with chronic cholecystitis without obstruction (principal); K21.9 Gastro-esophageal reflux disease without esophagitis; H54.7 Unspecified visual loss
CPT/HCPCS: 36415; 80048; 80053; 81025; 82150; 82247; 83690; 84075; 85025; 85027; 94762; 96360; 99285-25; A9270-GY; C9113; J0171; J0330; J1100; J1170; J2405; J2543; J2704; J2710; J2795; J3010; J7030; J7042; J7050; J7120

== ENCOUNTER 2017-11-03 12:02 | Emergency (ER) | payer MEDICAID ==
[2017-11-03] MEDS ORDERED: Ondansetron 4 MG Tab.DIS PO ONE (12:45)
[2017-11-03] MEDS ORDERED: HYDROmorphone 1 MG/ML Syringe IVPUSH ONE (12:49)
--- NOTE | 2017-11-03 12:53 | EDM.PDOC ---
ED HPI GENERAL MEDICAL PROBLEM - General Chief Complaint: General Stated Complaint: NAUSEOUS, WEAK Time Seen by Provider: 11/03/17 12:40 Source of Information: Reports: Patient, Old Records, RN History Limitations: Reports: No Limitations - History of Present Illness INITIAL COMMENTS - FREE TEXT/NARRATIVE: 26 yo female presents with abrupt onset of epigastric pain that began about 0830h today. She has nausea without vomiting. Recently had a cholecystectomy here with Dr. Ann. Bowels have been normal. No fever. Pain is rated as severe. Has not eaten today. Onset: Today Onset Date: 11/03/17 Onset Time: 08:30 Duration: Hour(s):, Constant Location: Reports: Abdomen (epigastric) Quality: Reports: Sharp Severity: Severe Improves with: Reports: None Worsens with: Reports: Other (pressure on area.) Context: Reports: Other (recent cholecystectomy) Associated Symptoms: Reports: Nausea/Vomiting (no vomiting). 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 Psychiatric History: post partem Endocrine/Metabolic History: Reports: Obesity/BMI 30+ Hematologic History: Reports: Iron Deficiency - Infectious Disease History Infectious Disease History: Reports: None - Past Surgical History Head Surgeries/Procedures: Reports: None HEENT Surgical History: Reports: Other (See Below) Other HEENT Surgeries/Procedures: wisdom teeth removed GI Surgical History: Reports: Cholecystectomy Female Surgical History: Reports: Section Endocrine Surgical History: Reports: None Dermatological Surgical History: Reports: None Social & Family History - Family History Psychiatric: Reports: Bipolar - Tobacco Use Smoking Status *Q: Never Smoker Second Hand Smoke Exposure: No - Caffeine Use Caffeine Use: Reports: None - Recreational Drug Use Recreational Drug Use: No - Living Situation & Occupation Living situation: Reports: Single, with Significant Other Occupation: Unemployed (lives with SO, two sons ages 4 years and 8 months in [place], [place].) ED ROS GENERAL - Review of Systems Review Of Systems: See Below Constitutional: Reports: No Symptoms HEENT: Reports: No Symptoms Respiratory: Reports: No Symptoms Cardiovascular: Reports: No Symptoms GI/Abdominal: Reports: Abdominal Pain, Nausea. Denies: Black Stool, Bloody Stool, Constipation, Diarrhea, Distension, Flatus, Hematemesis, Hematochezia, Melena, Vomiting : Reports: No Symptoms Musculoskeletal: Reports: No Symptoms Skin: Reports: No Symptoms Neurological: Reports: No Symptoms ED EXAM, GENERAL - Physical Exam Exam: See Below Exam Limited By: No Limitations General Appearance: Alert, WD/WN, Mild Distress Eye Exam: Bilateral Eye: Normal Inspection Ears: Normal External Exam, Normal Canal, Hearing Grossly Normal Ear Exam: Bilateral Ear: Auricle Normal, Canal Normal Nose: Normal Inspection, Normal Mucosa, No Blood Throat/Mouth: Normal Inspection, Normal Lips, Normal Oropharynx, Normal Voice, No Airway Compromise. No: Normal Teeth (bad teeth) Head: Atraumatic, Normocephalic Neck: Normal Inspection Respiratory/Chest: No Respiratory Distress, Lungs Clear, Normal Breath Sounds, No Accessory Muscle Use Cardiovascular: Regular Rate, Rhythm, No Edema GI/Abdominal: Tender (mid abdomen to epigastrium.) Extremities: Normal Inspection, Normal Range of Motion, Non-Tender, No Pedal Edema Neurological: Alert, Oriented, CN II-XII Intact, Normal Cognition, No Motor/ Sensory Deficits Psychiatric: Normal Affect, Normal Mood Skin Exam: Warm, Dry, Intact, Normal Color, No Rash Lymphatic: No Adenopathy Course - Vital Signs Text/Narrative:: Feeling much better by time of discharge. Last Recorded V/S: Last Vital Signs Temp 35.9 C 11/03/17 13:37 Pulse 72 11/03/17 13:37 Resp 18 11/03/17 13:37 BP 138/82 11/03/17 13:37 Pulse Ox 100 11/03/17 13:37 - Orders/Labs/Meds Orders: Active Orders 24 hr Category Date Time Status Lactated Ringers [Ringers, Lactated] 1,000 ml Med 11/03/17 13:00 Active IV ASDIRECTED Medication Orders Lactated Ringer's (Ringers, Lactated) 1,000 mls @ 150 mls/hr IV ASDIRECTED BOB Last Admin: 11/03/17 13:30 Dose: 150 mls/hr Labs: Laboratory Tests 11/03/17 11/03/17 11/03/17 Range/Units 12:57 12:57 12:57 WBC 8.7 (4.5-11.0) K/uL RBC 4.85 (3.30-5.50) M/uL Hgb 10.7 L (12.0-15.0) g/dL Hct 35.2 L (36.0-48.0) % MCV 73 L (80-98) fL MCH 22 L (27-31) pg MCHC 30 L (32-36) % Plt Count 430 H (150-400) K/uL Sodium 137 L (140-148) mmol/L Potassium 4.1 (3.6-5.2) mmol/L Chloride 103 (100-108) mmol/L Carbon Dioxide 24 (21-32) mmol/L Anion Gap 14.1 H (5.0-14.0) mmol/L BUN 16 (7-18) mg/dL Creatinine 0.7 (0.6-1.0) mg/dL Est Cr Clr Drug Dosing 116.35 mL/min Estimated GFR (MDRD) > 60 (>60) Glucose 126 H (74-106) mg/dL Calcium 9.1 (8.5-10.1) mg/dL Total Bilirubin 0.9 D (0.2-1.0) mg/dL AST 334 H D (15-37) U/L ALT 274 H (12-78) U/L Alkaline Phosphatase 391 H D (46-116) U/L Total Protein 7.7 (6.4-8.2) g/dL Albumin 3.9 (3.4-5.0) g/dL Globulin 3.8 H (2.3-3.5) g/dL Albumin/Globulin Ratio 1.0 L (1.2-2.2) Lipase 104 (73-393) U/L Meds: Medications Generic Name Dose Route Start Last Admin Trade Name Freq PRN Reason Stop Dose Admin Lactated Ringer's 1,000 mls @ 150 mls/hr 11/03/17 13:00 11/03/17 13:30 Ringers, Lactated IV 150 mls/hr ASDIRECTED BOB Administration Discontinued Medications Generic Name Dose Route Start Last Admin Trade Name Yvan PRN Reason Stop Dose Admin Al Hydroxide/Mg Hydroxide 15 0 ml 11/03/17 13:47 11/03/17 14:21 ml/ Lidocaine HCl 15 ml PO 11/03/17 13:48 15 ml ONETIME ONE Administration Hydromorphone HCl 1 mg 11/03/17 12:49 11/03/17 13:29 Dilaudid IVPUSH 11/03/17 12:50 1 mg ONETIME ONE Administration Ondansetron HCl 4 mg 11/03/17 12:45 11/03/17 13:07 Zofran Odt PO 11/03/17 12:46 4 mg ONETIME ONE Administration - Radiology Interpretation Free Text/Narrative:: Upright abd X-ray-no acute pathology noted. Departure - Departure Time of Disposition: 14:29 Disposition: Home, Self-Care 01 Condition: Fair Clinical Impression: Epigastric pain - Discharge Information Referrals: Jelly Iqabl CNM [Primary Care Provider] - Forms: ED Department Discharge Additional Instructions: Increase your Zantac(ranitidine) to 300 mg every day in the evening. Take Maalox Plus or Mylanta II 30 ml after meals and at bedtime as needed. Avoid carbonated beverages. Recheck with Dr. Ann as needed or as scheduled. Return here as needed. - My Orders Last 24 Hours: My Active Orders 11/03/17 13:00 Lactated Ringers [Ringers, Lactated] 1,000 ml IV ASDIRECTED - Assessment/Plan Last 24 Hours: My Active Orders 11/03/17 13:00 Lactated Ringers [Ringers, Lactated] 1,000 ml IV ASDIRECTED
[2017-11-03] MEDS ORDERED: Lactated Ringers 1,000 ML IV SCH (13:00)
[2017-11-03 13:40] VITALS: BP 138/82
[2017-11-03] MEDS ORDERED: Alum Hydrox/Mag Hydrox/Simeth 15 ML, Lidocaine 2% 15 ML PO ONE ×2 (13:47)
--- NOTE | 2017-11-03 14:18 | CR ---
Abdomen 1V Upright CLINICAL HISTORY: Epigastric pain, recent cholecystectomy FINDINGS: The bowel gas pattern is nonobstructive. No abnormal masses are noted. There is no free air . There are surgical clips in the right upper quadrant from previous cholecystectomy IMPRESSION: Nonacute intestinal gas pattern Previous cholecystectomy
== END 2017-11-03 13:02 | disposition home or self-care (01) ==
LOC: JP.ED 12:02
DX: R10.13 Epigastric pain (principal); R11.0 Nausea
CPT/HCPCS: 36415; 74018; 80053; 83690; 85027; 96361; 96374; 99283; A9270; J1170; J7120

== ENCOUNTER 2017-11-04 18:01 | Emergency (ER) | payer MEDICAID ==
[2017-11-04 18:15] VITALS: BP 139/79
--- NOTE | 2017-11-04 18:29 | EDM.PDOC ---
ED HPI GENERAL MEDICAL PROBLEM - General Chief Complaint: Abdominal Pain Stated Complaint: PAIN IN CHEST AND BACK Time Seen by Provider: 11/04/17 18:10 Source of Information: Reports: Patient, Family History Limitations: Reports: No Limitations - History of Present Illness INITIAL COMMENTS - FREE TEXT/NARRATIVE: 18-year-old female in for the secondary around with intense severe epigastric pain radiating to the back. These are symptoms very similar to prior to her cholecystectomy, it does not seem to have made a difference. Onset: Unknown/Unsure (Symptoms have been ongoing for several weeks) Location: Reports: Abdomen Severity: Severe (Tearful, very anxious) Improves with: Reports: None Worsens with: Reports: None Associated Symptoms: Reports: Loss of Appetite, Malaise. 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 Psychiatric History: post partem Endocrine/Metabolic History: Reports: Obesity/BMI 30+ Hematologic History: Reports: Iron Deficiency - Infectious Disease History Infectious Disease History: Reports: None - Past Surgical History Head Surgeries/Procedures: Reports: None HEENT Surgical History: Reports: Other (See Below) Other HEENT Surgeries/Procedures: wisdom teeth removed GI Surgical History: Reports: Cholecystectomy Female Surgical History: Reports: Section Endocrine Surgical History: Reports: None Dermatological Surgical History: Reports: None Social & Family History - Family History Psychiatric: Reports: Bipolar - Tobacco Use Smoking Status *Q: Never Smoker - Caffeine Use Caffeine Use: Reports: None - Recreational Drug Use Recreational Drug Use: No - Living Situation & Occupation Living situation: Reports: Single, with Significant Other Occupation: Unemployed (lives with SO, two sons ages 4 years and 8 months in [place], [place].) ED ROS GENERAL - Review of Systems Review Of Systems: See Below Constitutional: Reports: Malaise. Denies: Fever, Chills HEENT: Reports: No Symptoms Respiratory: Denies: Shortness of Breath Cardiovascular: Reports: Chest Pain (Some pain in the lower substernal area as well as epigastric) GI/Abdominal: Reports: Abdominal Pain, Other (Claims her stools have been dark the last several days) : Reports: No Symptoms Skin: Reports: No Symptoms Neurological: Reports: No Symptoms Psychiatric: Reports: Anxiety ED EXAM, GI/ABD - Physical Exam Exam: See Below Exam Limited By: No Limitations General Appearance: Alert, Anxious, Moderate Distress Eyes: Bilateral: Normal Appearance (No jaundice) Respiratory/Chest: No Respiratory Distress, Lungs Clear Cardiovascular: Regular Rate, Rhythm GI/Abdominal Exam: Soft, Tender (Exquisitely tender to palpation across the upper abdomen, especially in the epigastric area) Course - Vital Signs Last Recorded V/S: Last Vital Signs Temp 96.4 F 11/04/17 18:20 Pulse 76 11/04/17 18:20 Resp 20 11/04/17 18:20 BP 139/79 11/04/17 18:20 Pulse Ox 98 11/04/17 18:20 - Orders/Labs/Meds Labs: Laboratory Tests 11/04/17 11/04/17 Range/Units 18:26 18:26 WBC 8.8 (4.5-11.0) K/uL RBC 4.85 (3.30-5.50) M/uL Hgb 10.9 L (12.0-15.0) g/dL Hct 35.4 L (36.0-48.0) % MCV 73 L (80-98) fL MCH 23 L (27-31) pg MCHC 31 L (32-36) % Plt Count 447 H (150-400) K/uL Neut % (Auto) 76 H (36-66) % Lymph % (Auto) 15 L (24-44) % Taliaferro % (Auto) 7 H (2-6) % Eos % (Auto) 1 L (2-4) % Baso % (Auto) 0 (0-1) % Sodium 139 L (140-148) mmol/L Potassium 3.2 L (3.6-5.2) mmol/L Chloride 101 (100-108) mmol/L Carbon Dioxide 24 (21-32) mmol/L Anion Gap 17.2 H (5.0-14.0) mmol/L BUN 17 (7-18) mg/dL Creatinine 0.9 (0.6-1.0) mg/dL Est Cr Clr Drug Dosing 90.50 mL/min Estimated GFR (MDRD) > 60 (>60) Glucose 128 H (74-106) mg/dL Calcium 9.2 (8.5-10.1) mg/dL Total Bilirubin 0.8 (0.2-1.0) mg/dL AST 334 H (15-37) U/L ALT 436 H (12-78) U/L Alkaline Phosphatase 433 H (46-116) U/L Total Protein 8.3 H (6.4-8.2) g/dL Albumin 4.2 (3.4-5.0) g/dL Globulin 4.1 H (2.3-3.5) g/dL Albumin/Globulin Ratio 1.0 L (1.2-2.2) Amylase 42 (25-115) U/L Lipase 134 (73-393) U/L Meds: Medications Discontinued Medications Generic Name Dose Route Start Last Admin Trade Name Freq PRN Reason Stop Dose Admin Hydromorphone HCl 0.5 mg 11/04/17 18:26 11/04/17 18:32 Dilaudid IVPUSH 11/04/17 18:27 0.5 mg ONETIME ONE Administration - Re-Assessments/Exams Free Text/Narrative Re-Assessment/Exam: 11/04/17 19:02 An IV was started, the patient was given 0.5 mg of IV Dilaudid which similar to the last 2 ER visits had a very dramatic affect. Yesterday her liver enzymes were elevated, these will be repeated as well as amylase and lipase and CBC. She may need an EGD. 11/04/17 19:24 AST is stable but elevated, ALT and alkaline phosphatase continue to rise. This was discussed with Dr. Ann in this is a typical finding after cauterizing with a cholecystectomy which was just done 6 days ago. Her bilirubin is stable and normal. White count is normal. Her symptoms almost completely resolved again after the Dilaudid so she is going to be discharged and return tomorrow for an EGD. Departure - Departure Time of Disposition: 19:39 Disposition: Home, Self-Care Condition: Good Clinical Impression: Abdominal pain Qualifiers: Abdominal location: epigastric Qualified Code(s): R10.13 - Epigastric pain - Discharge Information Instructions: Abdominal Pain, Adult Referrals: Jelly Iqbal CNM [Primary Care Provider] - Forms: ED Department Discharge Care Plan Goals: Continue your regular medications and return tomorrow for an EGD as discussed with the nursing want ad supervisor.
[2017-11-04] MEDS: HYDROmorphone 0.5 MG/0.5 ML Syringe IVPUSH ONE (18:32)
== END 2017-11-04 19:38 | disposition home or self-care (01) ==
LOC: JP.ED 18:01
DX: R10.13 Epigastric pain (principal)
CPT/HCPCS: 36415; 80053; 82150; 83690; 85025; 96374; 99283; J1170

== ENCOUNTER 2017-11-05 06:59 | Day surgery (SDC) | payer MEDICAID ==
[2017-11-05] MEDS ORDERED: Dextrose 5%-Lactated Ringers 1,000 ML IV SCH (08:15)
[2017-11-05] MEDS ORDERED: Glycopyrrolate 0.2 MG/ML 2 ML SDV IVPUSH ONE (09:00)
[2017-11-05] MEDS ORDERED: Propofol 200 MG/20 ML SDV ONE (10:49)
[2017-11-05] MEDS ORDERED: Midazolam 1 MG/ML 2 ML SDV ONE (10:50)
[2017-11-05] MEDS ORDERED: fentaNYL 100 MCG/2 ML SDV ONE (10:50)
[2017-11-05] MEDS ORDERED: Pantoprazole 40 MG Vial IVPUSH ONE (11:04)
[2017-11-05 12:03] VITALS: BP 115/71
--- NOTE | 2017-11-09 13:52 | OR ---
DATE OF PROCEDURE: 11/05/2017 PREOPERATIVE DIAGNOSIS: Persistent epigastric pain, status post cholecystectomy. POSTOPERATIVE DIAGNOSES: Persistent epigastric pain associated with diffuse gastritis. OPERATIVE PROCEDURES: Esophagogastroduodenoscopy with biopsies of antrum for CLOtest. ANESTHESIA: IV sedation. INDICATION FOR PROCEDURE: The patient is 8 days status post laparoscopic cholecystectomy. At that time, she was noted to have a distended gallbladder and pathology report did confirm cholelithiasis and cholecystitis. She is having some persistent epigastric pain and has been seen in the emergency room 2 previous night. Each time, she had good pain relief with some relatively small amounts of Dilaudid. She was noted to have liver function tests and were elevated, in terms of AST, ALT, and alkaline phosphatase, but normal bilirubin. These enzyme changes, in all likelihood, are related to the heat injury status post cholecystectomy. The plan is to proceed with an upper GI endoscopy with biopsies as indicated. Potential risks including bleeding and perforation were discussed, and the patient wishes to proceed. DETAILS OF PROCEDURE: The patient was taken to the operating room and placed in a left lateral decubitus position. IV sedation was administered, after which the upper GI endoscope was passed orally through the length of the esophagus and into the stomach with retroflexion view of the fundus and thereafter through the pyloric channel and into the proximal duodenum. Findings included normal esophagus and EG junction area. Within the stomach, there was more or less diffuse gastritis. This was most intense in the distal body and antrum. No erosions or ulcers were seen. Pyloric channel and visualized portion of the duodenum were unremarkable. At this point, biopsies were obtained from the antrum and sent for CLOtest for H. pylori. Minimal bleeding from the biopsy site was seen, and the procedure then concluded. Plan will be to begin the patient on Protonix. We will give her 40 mg IV in the recovery room and then 40 mg a day thereafter, and some additional Dilaudid for pain control. She is scheduled to see us next week in clinic for followup. Naldo Ann MD /[id number]
== END 2017-11-05 12:11 | disposition home or self-care (01) ==
LOC: JP.SDS 06:59
PROVIDERS: ATTEND Surgery
DX: K29.60 Other gastritis without bleeding (principal); E66.9 Obesity, unspecified; K21.9 Gastro-esophageal reflux disease without esophagitis; Z90.49 Acquired absence of other specified parts of digestive tract
CPT/HCPCS: 43239; 81025; 87081; C9113; J2250; J2704; J3010; J3490; J7042

== ENCOUNTER 2019-09-12 06:13 | Emergency (ER) | payer SELFPAY ==
[2019-09-12 06:21] VITALS: BP 149/92; PULSE 90
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
== END 2019-09-12 06:46 | disposition home or self-care (01) ==
LOC: JP.ED 06:13
DX: K02.9 Dental caries, unspecified (principal); E66.9 Obesity, unspecified; Z68.36 Body mass index [BMI] 36.0-36.9, adult
CPT/HCPCS: 99282

== ENCOUNTER 2023-10-23 20:05 | Emergency (ER) | payer OTHER, MEDICAID ==
[2023-10-23] MEDS ORDERED: Naloxone 0.4 MG/ML SDV IVPUSH PRN (20:18)
[2023-10-23] MEDS: LORazepam 1 MG Tab PO ONE (20:27)
[2023-10-23] MEDS: Lidocaine/Epineph/Tetracaine 3 ML Syringe TOP ONE (20:28)
[2023-10-23] MEDS: Bacitracin Oint 1 GM U/D Packet TOP ONE (20:28)
[2023-10-23] MEDS: Lidocaine 1% 5 ML VIAL INJECT ONE (20:29)
[2023-10-23] MEDS: HYDROmorphone 1 MG/ML Syringe IVPUSH ONE (20:41)
[2023-10-23] MEDS: Sodium Chloride 0.9% 1,000 ML IV SCH (20:44)
[2023-10-23] MEDS: Tetracaine HCl/PF 0.5% 4 ML Bottle EYELF ONE (23:20)
[2023-10-24] MEDS: Acetaminophen 500 MG Tab PO ONE (00:21)
[2023-10-24 00:48] VITALS: BP 116/77; PULSE 79
== END 2023-10-24 00:40 | disposition home or self-care (01) ==
LOC: JP.ED 20:05
DX: S02.2XXA Fracture of nasal bones, initial encounter for closed fracture (principal); S01.81XA Laceration without foreign body of other part of head, initial encounter; S09.90XA Unspecified injury of head, initial encounter; W01.198A Fall on same level from slipping, tripping and stumbling with subsequent striking against other object, initial encounter; Y92.410 Unspecified street and highway as the place of occurrence of the external cause
CPT/HCPCS: 12011; 70450; 70487; 96374; 99283; A9270; J1170; J7030